=== PATIENT | female | born 2005 | race Caucasian/White ===

== ENCOUNTER 2024-10-03 08:46 | Emergency (ER) | payer MEDICARE, MEDICAID ==
[~2024-10-03] VITALS: Ht 162.6 cm; Wt 74.1 kg
[2024-10-03 09:06] VITALS: BP 118/83; PULSE 107; RESP 16; TEMP 99.3; O2SAT 98
[2024-10-03 09:37] LABS: COVID AG,FIA SOURCE NASAL SWAB
[2024-10-03 09:53] LABS: RAPID GROUP A STREP NEGATIVE (NEGATIVE)
[2024-10-03 09:57] LABS: SARS-COV2 (COVID) ANTIGEN,FIA Negative (Negative)
[2024-10-03 09:58] LABS: INFLUENZA TYPE A NEGATIVE FOR TYPE A (NEGATIVE); INFLUENZA TYPE B NEGATIVE FOR TYPE B (NEGATIVE)
[2024-10-03] MEDS: ACETAMINOPHEN 500 MG TABLET PO ONE (10:25)
[2024-10-03] MEDS ORDERED: BENZ-227 PO (10:37)
== END 2024-10-03 10:58 | disposition home or self-care (01) ==
LOC: EMS 08:49
DX: J06.9 Acute upper respiratory infection, unspecified (principal); J34.89 Other specified disorders of nose and nasal sinuses; J45.909 Unspecified asthma, uncomplicated; Z20.822 Contact with and (suspected) exposure to COVID-19
CPT/HCPCS: 87430; 87804; 99282; Z7502; Z7610